=== PATIENT | male | born 1975 | race Hispanic/Latino ===

== ENCOUNTER 2018-06-13 08:23 | Emergency (ER) | payer SELFPAY ==
[2018-06-13] MEDS ORDERED: Ibuprofen 200 MG TAB ONE (09:40)
== END 2018-06-13 09:45 | disposition home or self-care (01) ==
LOC: ERS 08:23
DX: M79.631 Pain in right forearm (principal); E78.5 Hyperlipidemia, unspecified
CPT/HCPCS: 99283

== ENCOUNTER 2019-02-14 08:08 | Emergency (ER) | payer SELFPAY ==
[2019-02-14] MEDS ORDERED: Ondansetron PF 4 MG/2 ML Vial ONE (08:41)
[2019-02-14] MEDS ORDERED: Morphine 4 MG/ML VIAL ONE ×2 (08:41→09:37)
[2019-02-14] MEDS ORDERED: HYDROmorphone 0.5 MG/0.5 ML SYRINGE ONE (10:00)
[2019-02-14 10:17] LABS: #Eosinphils 0.1 thou/uL (0.0-0.7); #Lymphocytes 2.3 thou/uL (1.20-3.40); #Monocytes 0.6 thou/uL (0.11-0.59); #Neutrophils 4.2 thou/uL (1.40-6.50); %Basophils 0.2 % (0.0-1.0); %Eosinophils 1.6 % (0.0-10.0); %Lymphocytes 31.5 % (21.0-51.0); %Monocytes 8.6 % (0.0-10.0); %Neutrophils 58.1 % (42.0-75.0); Hemoglobin 17.2 g/dL (14.0-18.0); Mean Corpuscular HGB CONC 33.7 g/dL (32.0-36.0); Mean Corpuscular Hemoglobin 29.8 pg (27.0-31.0); Mean Corpuscular Volume 88.3 fL (78.0-98.0); Mean Platelet Volume 10.4 fL (7.4-10.4); Platelet Count 183 thou/uL (130-400); RBC Distribution Width 12.6 % (11.5-14.5); Red Blood Cell (RBC) Count 5.77 mill/uL (4.70-6.10); White Blood Cell (WBC) Count 7.2 thou/uL (4.8-10.8)
[2019-02-14 10:23] LABS: ALT (SGPT) 40 U/L (8-55); AST (SGOT) 26 U/L (5-34); Albumin 4.5 g/dL (3.5-5.0); Alkaline Phosphatase 102 U/L (40-150); Anion Gap 15 mmol/L (10-20); BUN (Urea Nitrogen) 19 mg/dL (8.9-20.6); Bilirubin, Total 0.7 mg/dL (0.2-1.2); Calc. Creatinine Clearance 0 mL/min (70-130); Calcium 10.1 mg/dL (7.8-10.44); Carbon Dioxide 23 mmol/L (22-29); Chloride 103 mmol/L (98-107); Estimated GFR-MDRD 62; Globulin 3.1 g/dL (2.4-3.5); Glucose 133 mg/dL (70-105); Lipase 30 U/L (8-78); Potassium 4.2 mmol/L (3.5-5.1); Protein, Total 7.6 g/dL (6.0-8.3); Sodium 137 mmol/L (136-145)
[2019-02-14] MEDS ORDERED: Ketorolac Tromethamine 30 MG/ML VIAL ONE (10:28)
--- NOTE | 2019-02-14 10:45 | CT ---
CT ABDOMEN AND PELVIS WITH CONTRAST: HISTORY: Abdominal pain. COMPARISON: None. FINDINGS: The lung bases are clear. No pericardial effusion. There is left perinephric stranding and left hyd roureteronephrosis due to a proximal ureteral stone, measuring 3 x 5 mm. There is periureteral infla mmation. The distal left ureter is unremarkable. There is a stone within the urachal remnant. There is hypoenhancement of the inferior left kidney, l ess likely a mass. There are nonobstructing 2 x 3 mm calculi within the interpolar right kidney, a total of two. No rig ht hydroureteronephrosis. The adrenal glands are unremarkable, as well as the spleen, pancreas, liver, and gallbladder. No dilated loops of large or small bowel. The aortoiliac contour is nonaneurysmal. No acute osseous abnormality. IMPRESSION: 1. Mild left hydroureteronephrosis and perinephric stranding, as well as hypoenhancement of the left inferior pole, concerning for pyelonephritis, superimposed upon obstructive uropathy. There is a ca lculus, measuring 4 x 5 mm, in the proximal left ureter, 4.8 cm from the ureteropelvic junction. Foll ow up CT after treatment in 3-6 months recommended. 2. Two separate 2 x 3 mm nonobstructing calculi, right kidney. 3. Normal appendix. POS: CET
[2019-02-14 11:01] LABS: Bilirubin Negative (Negative); Blood, Urine Large (Negative); Clarity CLEAR (Clear); Glucose, Urine (Dipstick) Negative (Negative); Leukocyte Negative (Negative); Nitrite Negative (Negative); Protein, Urine (Dipstick) Negative (Neg-Trace); Urobilinogen 0.2 mg/dL (0.2-1.0)
[2019-02-14 11:03] LABS: Bacteria/HPF None Seen HPF (None Seen); Hyaline Casts/LPF 0-3 HYALINE CAST LPF (0-3 Hyaline); Squamous Epithelial None Seen HPF (0-3); WBC/HPF 0-3 HPF (0-3)
[2019-02-14 11:06] LABS: Yeast-AUWi Flag 62.5 (0-25.0)
[2019-02-14 11:07] LABS: Specific Gravity, Urine 1.056 (1.002-1.036)
[2019-02-14 11:14] LABS: RBC/HPF 21-50 HPF (0-3); Yeast-All Forms None Seen HPF (None Seen)
== END 2019-02-14 12:01 | disposition home or self-care (01) ==
LOC: ERS 08:08
DX: N20.2 Calculus of kidney with calculus of ureter (principal)
CPT/HCPCS: 74177; 80053; 81001; 83690; 85025; 96361; 96374; 96375; J1170; J1885; J2270; J2405